=== PATIENT | male | born 1995 | race Caucasian/White ===

== ENCOUNTER 2018-09-28 16:47 | Emergency (ER) | payer SELFPAY ==
[~2018-09-28] VITALS: Ht 187.9 cm; Wt 86.2 kg
== END 2018-09-28 20:00 | disposition home or self-care (01) ==
LOC: ED 16:47
DX: T15.01XA Foreign body in cornea, right eye, initial encounter (principal); M54.41 Lumbago with sciatica, right side; F17.200 Nicotine dependence, unspecified, uncomplicated; X58.XXXA Exposure to other specified factors, initial encounter; Y93.89 Activity, other specified; Y92.89 Other specified places as the place of occurrence of the external cause; Y99.8 Other external cause status

== ENCOUNTER 2018-12-29 06:56 | Emergency (ER) | payer SELFPAY ==
[~2018-12-29] VITALS: Ht 187.9 cm; Wt 79.4 kg
[2018-12-29] MEDS ORDERED: NORCO 10-325 T1 EACH PO (07:24)
[2018-12-29] MEDS ORDERED: AMOXICILLIN500 M2 PO (07:24)
== END 2018-12-29 09:13 | disposition home or self-care (01) ==
LOC: ED 06:56
DX: K02.9 Dental caries, unspecified (principal)

== ENCOUNTER 2018-12-31 02:01 | Emergency (ER) | payer SELFPAY ==
[~2018-12-31] VITALS: Ht 187.9 cm; Wt 79.4 kg
[~2018-12-31 02:01] MED LIST: AMOXICILLIN500 M2 PO; NORCO 10-325 T1 EACH PO
[2018-12-31] MEDS ORDERED: NORCO 5-325 TA1 EACH PO (03:37)
== END 2018-12-31 03:45 | disposition home or self-care (01) ==
LOC: ED 02:01
DX: K04.7 Periapical abscess without sinus (principal); K02.9 Dental caries, unspecified

== ENCOUNTER 2019-02-12 20:14 | Emergency (ER) | payer SELFPAY ==
[~2019-02-12] VITALS: Ht 187.9 cm; Wt 79.4 kg
[~2019-02-12 20:14] MED LIST changes: +NORCO 5-325 TA1 EACH PO
[2019-02-12] MEDS ORDERED: AMOXICILLIN500 M3 PO (20:29)
[2019-02-12] MEDS ORDERED: ANAPROX DS550 MG PO (20:29)
== END 2019-02-12 21:01 | disposition home or self-care (01) ==
LOC: ED 20:14
DX: K08.89 Other specified disorders of teeth and supporting structures (principal); Z79.2 Long term (current) use of antibiotics

== ENCOUNTER 2021-01-25 20:09 | Inpatient (IN) | payer SELFPAY ==
[~2021-01-25] VITALS: Ht 188 cm; Wt 88.9 kg
[~2021-01-25 20:09] MED LIST changes: +AMOXICILLIN500 M3 PO; +ANAPROX DS550 MG PO
[2021-01-25 20:12] VITALS: BP 134/75
[2021-01-25 20:38] LABS: HEMATOCRIT 43.2 % (42.0-52.0); MEAN CELL VOLUME 89.4 fl (80.0-94.0); MEAN CORPUSCULAR HGB 29.8 pg (27.0-31.0); MEAN CORPUSCULAR HGB CONC 33.3 g/dl (33.0-37.0); MEAN PLATELET VOLUME 9.6 fl (9.6-12.3); PLATELET COUNT AUTOMATED 348 10*3/uL (130-400); RED BLOOD COUNT 4.83 10*6/uL (4.50-5.90); RED CELL DISTRI WIDTH 12.3 % (0-14.5); WHITE BLOOD COUNT 3.8 10*3/uL (4.8-10.8)
[2021-01-25 21:05] LABS: ATYPICAL LYMPHS 3 % (0-0); BASOPHILS 1 % (0-1); PLATELET SUFFICIENCY NORMAL (NORMAL); TOTAL CELLS COUNTED 100 #CELLS
[2021-01-25 21:40] LABS: ALBUMIN 3.4 gm/dl (3.1-4.5); ALKALINE PHOSPHATASE 70 U/L (45-117); BUN 16 mg/dl (7-24); CHLORIDE 100 mmol/L (98-107); CREATININE 1.05 mg/dL (0.70-1.30); POTASSIUM 3.4 mmol/L (3.5-5.1); SGOT/AST 92 IU/L (3-35); SGPT/ALT 87 U/L (12-78); SODIUM 137 mmol/L (136-145); TOTAL PROTEIN 7.6 gm/dL (6.4-8.2)
[2021-01-25 21:45] LABS: TROPONIN I 0.079 ng/ml (<0.045)
[2021-01-25 23:00] VITALS: BP 124/76
[2021-01-26 01:00] VITALS: BP 123/74
[2021-01-26 03:00] VITALS: BP 118/60
[2021-01-26 03:26] LABS: BILIRUBIN Negative (Negative); BLOOD Negative (Negative); CLARITY Clear (Clear); COLOR Yellow (Yellow); GLUCOSE Trace (Negative); KETONE 1+ (Negative); LEUKO ESTERASE Negative (Negative); NITRITE Negative (Negative); PH 5.5 (4.5-8.0); SPECIFIC GRAVITY 1.015 (1.001-1.030)
[2021-01-26 03:33] LABS: RBC 0-2 rbc/hpf (0-2); WBC 0-2 wbc/hpf (0-5)
[2021-01-26 03:35] LABS: URINE AMPHETAMINES > 1000 (1000ng/ml); URINE BARBITURATES < 200 (200ng/ml); URINE BENZODIAZEPINES < 200 (200ng/ml); URINE CANNABINOIDS (THC) > 50 (50ng/ml); URINE COCAINE < 300 (300ng/ml); URINE METHADONE < 300 (300ng/ml); URINE OPIATES < 300 (300ng/ml)
[2021-01-26 03:36] LABS: URINE PHENCYCLIDINE < 25 (25ng/ml)
[2021-01-26 06:00] VITALS: BP 111/57
[2021-01-26 08:00] VITALS: BP 134/104
[2021-01-26 10:32] LABS: HEMATOCRIT 42.8 % (42.0-52.0); MEAN CORPUSCULAR HGB 29.9 pg (27.0-31.0); MEAN CORPUSCULAR HGB CONC 33.6 g/dl (33.0-37.0); MEAN PLATELET VOLUME 9.3 fl (9.6-12.3); PLATELET COUNT AUTOMATED 337 10*3/uL (130-400); RED BLOOD COUNT 4.81 10*6/uL (4.50-5.90); RED CELL DISTRI WIDTH 12.5 % (0-14.5); WHITE BLOOD COUNT 15.7 10*3/uL (4.8-10.8)
[2021-01-26 10:51] LABS: ALBUMIN 3.2 gm/dl (3.1-4.5); ALKALINE PHOSPHATASE 63 U/L (45-117); BUN 13 mg/dl (7-24); CHLORIDE 108 mmol/L (98-107); CREATININE 0.83 mg/dL (0.70-1.30); POTASSIUM 4.1 mmol/L (3.5-5.1); SGOT/AST 60 IU/L (3-35); SGPT/ALT 73 U/L (12-78); SODIUM 137 mmol/L (136-145); TOTAL PROTEIN 7.7 gm/dL (6.4-8.2); TROPONIN I 0.032 ng/ml (<0.045)
[2021-01-26 11:16] LABS: BASOPHILS 1 % (0-1); PLATELET SUFFICIENCY NORMAL (NORMAL); POLYCHROMASIA SLIGHT; TOTAL CELLS COUNTED 100 #CELLS
[2021-01-26 12:00] VITALS: BP 138/86
== END 2021-01-26 16:20 | disposition left against medical advice (07) | DRG 871 ==
LOC: ED 20:09 → EDHOLD 23:05 → 4E 01-26 07:36
PROVIDERS: Emergency Medicine; Student in an Organized Health Care Education/Training Program; ADMIT Internal Medicine; ATTEND Internal Medicine
DX: A41.9 Sepsis, unspecified organism (principal); J69.0 Pneumonitis due to inhalation of food and vomit; R65.20 Severe sepsis without septic shock; J96.01 Acute respiratory failure with hypoxia; T40.1X1A Poisoning by heroin, accidental (unintentional), initial encounter; T40.411A Poisoning by fentanyl or fentanyl analogs, accidental (unintentional), initial encounter; F17.210 Nicotine dependence, cigarettes, uncomplicated; Z20.822 Contact with and (suspected) exposure to COVID-19; E87.6 Hypokalemia; F19.10 Other psychoactive substance abuse, uncomplicated; R74.01 Elevation of levels of liver transaminase levels; Y92.89 Other specified places as the place of occurrence of the external cause

== ENCOUNTER 2021-02-11 05:17 | Emergency (ER) | payer SELFPAY ==
[2021-02-11] MEDS ORDERED: PENICILLIN VK500 MG PO (05:27)
== END 2021-02-11 05:40 | disposition home or self-care (01) ==
LOC: ED 05:17
DX: K02.9 Dental caries, unspecified (principal); F17.200 Nicotine dependence, unspecified, uncomplicated

== ENCOUNTER 2022-07-19 23:35 | Emergency (ER) | payer SELFPAY ==
[~2022-07-19] VITALS: Ht 187.9 cm; Wt 86.2 kg
[~2022-07-19 23:35] MED LIST changes: +PENICILLIN VK500 MG PO
== END 2022-07-20 02:02 | disposition home or self-care (01) ==
LOC: ED 23:35
DX: T40.411A Poisoning by fentanyl or fentanyl analogs, accidental (unintentional), initial encounter (principal); F17.200 Nicotine dependence, unspecified, uncomplicated; F19.10 Other psychoactive substance abuse, uncomplicated; Y92.89 Other specified places as the place of occurrence of the external cause

== ENCOUNTER 2022-07-20 22:41 | Emergency (ER) | payer SELFPAY ==
[~2022-07-20] VITALS: Ht 177.8 cm; Wt 77.1 kg
== END 2022-07-20 22:55 | disposition left against medical advice (07) ==
LOC: ED 22:41
DX: T40.601A Poisoning by unspecified narcotics, accidental (unintentional), initial encounter (principal); F17.200 Nicotine dependence, unspecified, uncomplicated; F19.10 Other psychoactive substance abuse, uncomplicated; Y92.89 Other specified places as the place of occurrence of the external cause

== ENCOUNTER 2022-12-06 02:55 | Emergency (ER) | payer SELFPAY ==
[~2022-12-06] VITALS: Ht 187.9 cm; Wt 93.0 kg
[2022-12-06 03:37] LABS: BASO % 0.4 % (0.0-1.0); EOS # 0.1 10*3/uL (0.0-0.4); EOS % 0.7 % (1.0-4.0); HEMATOCRIT 35.9 % (42.0-52.0); LYMPH # 2.3 10*3/uL (1.3-4.4); LYMPH % 31.4 % (27.0-41.0); MEAN CELL VOLUME 88.9 fl (80.0-94.0); MEAN CORPUSCULAR HGB CONC 33.7 g/dl (33.0-37.0); MONO # 0.9 10*3/uL (0.1-1.0); MONO % 11.9 % (3.0-9.0); NEUT # 4.1 10*3/uL (2.3-7.9); NEUT % 55.5 % (47.0-73.0); PLATELET COUNT AUTOMATED 308 10*3/uL (130-400); RED BLOOD COUNT 4.04 10*6/uL (4.50-5.90); WHITE BLOOD COUNT 7.5 10*3/uL (4.8-10.8)
[2022-12-06 03:50] LABS: ACT PARTIAL THROMBO TIME 33.2 SECONDS (20.0-32.1); INTERNATIONAL NORM RATIO 1.1 (2.0-3.5)
[2022-12-06 03:59] LABS: ALKALINE PHOSPHATASE 55 U/L (46-116); BUN 16 mg/dl (9-23); CHLORIDE 100 mmol/L (98-107); LIPASE 23 U/L (12-53); POTASSIUM 3.8 mmol/L (3.4-5.1); SGPT/ALT 44 U/L (10-49); TOTAL PROTEIN 7.1 gm/dL (6.0-8.0)
== END 2022-12-06 04:45 | disposition left against medical advice (07) ==
LOC: ED 02:55
PROVIDERS: Internal Medicine
DX: M79.89 Other specified soft tissue disorders (principal); F17.200 Nicotine dependence, unspecified, uncomplicated; F19.10 Other psychoactive substance abuse, uncomplicated; Z79.899 Other long term (current) drug therapy